=== PATIENT | male | born 1990 | race Caucasian/White ===

== ENCOUNTER → 2019-09-04 | Outpatient (CLI) | payer OTHER ==
[2019-09-04 14:22] LABS: BASO % 0.7 % (0.0-1.0); EOS # 0.3 10*3/uL (0.0-0.4); EOS % 4.4 % (1.0-4.0); HEMATOCRIT 35.8 % (42.0-52.0); HEMOGLOBIN 11.9 g/dl (14.0-18.0); LYMPH # 1.7 10*3/uL (1.3-4.4); LYMPH % 29.9 % (27.0-41.0); MEAN CELL VOLUME 89.3 fl (80.0-94.0); MEAN CORPUSCULAR HGB 29.7 pg (27.0-31.0); MEAN CORPUSCULAR HGB CONC 33.2 g/dl (33.0-37.0); MEAN PLATELET VOLUME 11.5 fl (9.6-12.3); MONO # 0.3 10*3/uL (0.1-1.0); MONO % 5.8 % (3.0-9.0); NEUT # 3.4 10*3/uL (2.3-7.9); PLATELET COUNT AUTOMATED 178 10*3/uL (130-400); RED BLOOD COUNT 4.01 10*6/uL (4.50-5.90); RED CELL DISTRI WIDTH 12.4 % (0-14.5); WHITE BLOOD COUNT 5.7 10*3/uL (4.8-10.8)
[2019-09-04 14:52] LABS: BUN 15 mg/dl (7-24); CHLORIDE 105 mmol/L (98-107); CREATININE 0.69 mg/dL (0.70-1.30); POTASSIUM 4.1 mmol/L (3.5-5.1); SGOT/AST 9 IU/L (3-35); SGPT/ALT 24 U/L (12-78); SODIUM 137 mmol/L (136-145); TOTAL PROTEIN 7.5 gm/dL (6.4-8.2)
[2019-09-04 14:58] LABS: VITAMIN D, 25-HYDROXY 45.5 ng/mL (30-100)
[2019-09-04 15:01] LABS: ALKALINE PHOSPHATASE 79 U/L (45-117); FREE T4 1.07 ng/dl (0.76-1.46); THYROID STIM HORMONE (HS) 0.883 uIU/ml (0.358-4.75)
[2019-09-05 07:10] LABS: FOLLICLE STIMULATING HORMONE <0.2 mIU/mL (1.5-12.4); LUTEINIZING HORMONE 004283 0.1 mIU/mL (1.7-8.6); PROLACTIN 004465 4.3 ng/mL (4.0-15.2); SEX HORMONE BINDING GLOBULIN 68.1 nmol/L (16.5-55.9)
[2019-09-06 00:06] LABS: TESTOSTERONE FREE, (DIRECT) <0.2 pg/mL (9.3-26.5)
[2019-09-06 07:09] LABS: HUMAN GROWTH HORMONE <0.1 ng/mL (0.0-10.0)
[2019-09-06 08:11] LABS: INSULIN-LIKE GROWTH FACTOR-1 153 ng/mL (98-282)
== END | disposition home or self-care (01) ==
LOC: LAB 13:41 → RAD 14:00
PROVIDERS: Internal Medicine Endocrinology, Diabetes & Metabolism
DX: E55.9 Vitamin D deficiency, unspecified (principal); R79.89 Other specified abnormal findings of blood chemistry; R26.81 Unsteadiness on feet; E29.0 Testicular hyperfunction; Z87.891 Personal history of nicotine dependence